=== PATIENT | male | born 1950 | race Caucasian/White ===

== ENCOUNTER 2024-07-28 15:34 | Inpatient (IN) | payer OTHER, MEDICARE ==
[2024-07-28 15:46] VITALS: RESP 18; BMI 24.3
[2024-07-28 16:50] LABS: BASO % 0.3 % (0-2.0); EOS % 0.6 % (0-4.5); HEMATOCRIT 39.2 % (35.4-49); HEMOGLOBIN 13.5 GM/dL (11.7-16.9); LYMPH % 24.9 % (8-40); MCH 32.6 pg (25.7-33.7); MCHC 34.3 g/dl (32.0-35.9); MEAN CELL VOLUME 94.9 fl (80-96); MONO % 9.8 % (3.8-10.2); NEUT % 64.4 % (42.8-82.8); PLATELET COUNT 144 10^3/uL (134-434); RBC 4.13 M/mm3 (4.00-5.60); RDW 12.7 % (11.9-15.9); WHITE BLOOD COUNT 7.3 K/mm3 (4.0-10.0)
[2024-07-28 16:58] LABS: INR 1.14 (0.83-1.09); PROTHROMBIN TIME (PATIENT) 13.1 SEC (9.7-13.0)
[2024-07-28 17:01] LABS: ACTIVATED PTT 25.8 SECONDS (25.2-36.5)
[2024-07-28 17:13] LABS: POTASSIUM 4.2 mmol/L (3.5-5.1)
[2024-07-28 17:15] LABS: BLOOD UREA NITROGEN 18.3 mg/dL (7-18); CALCIUM 9.1 mg/dL (8.5-10.1)
[2024-07-28 17:19] LABS: CREATININE 1.2 mg/dL (0.55-1.3)
[2024-07-28 17:21] LABS: BILIRUBIN,TOTAL 0.7 mg/dL (0.2-1); TOT PROT 7.3 g/dl (6.4-8.2)
[2024-07-28 17:24] LABS: N-TERMINAL BNP 3077.6 pg/ml (5-450)
[2024-07-28] MEDS: metoPROLOL SUCCINATE 25 MG TAB.SR.24H (FP) PO ONE (21:29)
[2024-07-28] MEDS: APIXABAN 5 MG TABLET PO SCH (21:29)
[2024-07-29 00:57] LABS: URINE APPEARANCE CLEAR; URINE COLOR YELLOW; URINE GLUCOSE (UA) NEGATIVE (NEGATIVE)
[2024-07-29 00:58] LABS: URINE BILIRUBIN NEGATIVE (NEGATIVE); URINE KETONE TRACE (NEGATIVE); URINE NITRITE NEGATIVE (NEGATIVE); URINE PROTEIN NEGATIVE (NEGATIVE); URINE UROBILINOGEN 0.2 mg/dL (0.2-1.0)
[2024-07-29 00:59] LABS: URINE LEUK ESTERASE NEGATIVE (NEGATIVE)
[2024-07-29 08:16] LABS: BASO % 0.4 % (0-2.0); EOS % 0.7 % (0-4.5); HEMATOCRIT 37.1 % (35.4-49); HEMOGLOBIN 12.7 GM/dL (11.7-16.9); LYMPH % 21.5 % (8-40); MCH 32.6 pg (25.7-33.7); MCHC 34.1 g/dl (32.0-35.9); MEAN CELL VOLUME 95.5 fl (80-96); MEAN PLT VOLUME 9.9 fl (7.5-11.1); MONO % 11.2 % (3.8-10.2); NEUT % 66.2 % (42.8-82.8); PLATELET COUNT 121 10^3/uL (134-434); RBC 3.88 M/mm3 (4.00-5.60); RDW 12.9 % (11.9-15.9); WHITE BLOOD COUNT 5.5 K/mm3 (4.0-10.0)
[2024-07-29 08:23] LABS: POTASSIUM 3.8 mmol/L (3.5-5.1)
[2024-07-29 08:36] LABS: ALBUMIN 3.4 g/dl (3.4-5.0)
[2024-07-29 08:37] LABS: TOT PROT 6.1 g/dl (6.4-8.2)
[2024-07-29 08:38] LABS: CREATININE 1.1 mg/dL (0.55-1.3)
[2024-07-29 08:45] LABS: BILIRUBIN,TOTAL 0.8 mg/dL (0.2-1)
[2024-07-29 08:46] LABS: CALCIUM 8.9 mg/dL (8.5-10.1)
[2024-07-29 08:47] LABS: BLOOD UREA NITROGEN 17.2 mg/dL (7-18)
[2024-07-29] MEDS ORDERED: metoPROLOL SUCCINATE 25 MG TAB.SR.24H (FP) PO SCH (10:00)
[2024-07-29] MEDS: LOSARTAN 50MG/HCTZ 12.5MG 1 TAB PO SCH (13:45)
[2024-07-29] MEDS: metoPROLOL SUCCINATE 25 MG TAB.SR.24H (FP) PO SCH (13:45)
[2024-07-29] MEDS: TAMOXIFEN CITRATE 10 MG TABLET PO SCH (15:49)
[2024-07-30 06:10] VITALS: TEMP 97.9
[2024-07-30 08:12] LABS: BASO % 0.3 % (0-2.0); EOS % 1.2 % (0-4.5); HEMATOCRIT 36.1 % (35.4-49); HEMOGLOBIN 12.4 GM/dL (11.7-16.9); LYMPH % 23.7 % (8-40); MCH 32.7 pg (25.7-33.7); MCHC 34.4 g/dl (32.0-35.9); MEAN CELL VOLUME 95.2 fl (80-96); MEAN PLT VOLUME 10.2 fl (7.5-11.1); MONO % 10.5 % (3.8-10.2); NEUT % 64.3 % (42.8-82.8); PLATELET COUNT 128 10^3/uL (134-434); RBC 3.79 M/mm3 (4.00-5.60); RDW 12.8 % (11.9-15.9); WHITE BLOOD COUNT 5.8 K/mm3 (4.0-10.0)
[2024-07-30] MEDS ORDERED: REGADENOSON 0.4 MG/5 ML PRE-FILLED SYRINGE IVPUSH ONE (08:15)
[2024-07-30 08:29] LABS: CALCIUM 8.5 mg/dL (8.5-10.1)
[2024-07-30 08:30] LABS: ALBUMIN 3.4 g/dl (3.4-5.0); BLOOD UREA NITROGEN 17.4 mg/dL (7-18)
[2024-07-30 08:35] LABS: BILIRUBIN,TOTAL 0.7 mg/dL (0.2-1); TOT PROT 6.1 g/dl (6.4-8.2)
[2024-07-30] MEDS: REGADENOSON 0.4 MG/5 ML PRE-FILLED SYRINGE IVPUSH ONE (08:55)
[2024-07-30 16:13] VITALS: BP 150/61; PULSE 57
== END 2024-07-30 18:38 | disposition home or self-care (01) | DRG 309 ==
LOC: JER 15:34 → JERBED 17:51 → J4W 21:04
PROVIDERS: ADMIT Internal Medicine; ATTEND Internal Medicine
DX: I48.91 Unspecified atrial fibrillation (principal); I24.89 Other forms of acute ischemic heart disease; I10 Essential (primary) hypertension; K21.9 Gastro-esophageal reflux disease without esophagitis; I45.10 Unspecified right bundle-branch block; I45.2 Bifascicular block
CPT/HCPCS: 0241U-QW; 36415; 71045-TC-FY; 71275-TC; 78452-TC; 80053; 80061; 81003; 83735; 83880; 84100; 84484; 85025; 85610; 85730; 93005; 93010; 93017; 93306-TC; 99285-25; A9502; J2785

== ENCOUNTER 2025-05-12 22:54 | Emergency (ER) | payer OTHER, MEDICARE ==
[2025-05-12 22:59] VITALS: RESP 18; TEMP 98.4; BMI 24.3
[2025-05-13 00:58] LABS: ABSOLUTE IMMATURE GRANULOCYTES 0.02 x10^3/uL (0.0-0.031); BASOPHILS # 0.02 x10^3/uL (0.01-0.08); EOSINOPHIL % 1.7 % (0.8-7.0); EOSINOPHILS # 0.11 x10^3/uL (0.04-0.54); HEMATOCRIT 35.1 % (40.1-51.0); HEMOGLOBIN 11.8 g/dL (13.7-17.5); MCHC 33.6 g/dl (32.3-36.5); MEAN CELL VOLUME 96.4 fl (79.0-92.2); MEAN PLT VOLUME 11.9 fl (9.4-12.4); MONOCYTE # 0.67 x10^3/uL (0.30-0.82); MONOCYTE % 10.5 % (5.3-12.2); PLATELET COUNT 126 x10^3/uL (163-337); RDW 12.2 % (12.2-16.6)
[2025-05-13 01:55] LABS: INR 1.48 (0.83-1.09); PROTHROMBIN TIME (PATIENT) 16.3 SEC (9.7-13.0)
[2025-05-13 01:57] LABS: ACTIVATED PTT 30.2 SECONDS (25.2-36.5)
[2025-05-13 02:05] LABS: POTASSIUM 4.3 mmol/L (3.5-5.1)
[2025-05-13 02:07] LABS: CALCIUM 9.4 mg/dL (8.5-10.1)
[2025-05-13 02:09] LABS: ALBUMIN 3.4 g/dl (3.4-5.0); MAGNESIUM 1.9 mg/dL (1.8-2.4)
[2025-05-13 02:12] LABS: CREATININE 1.1 mg/dL (0.55-1.3)
[2025-05-13 02:14] LABS: BILIRUBIN,TOTAL 0.3 mg/dL (0.2-1); TOT PROT 6.3 g/dl (6.4-8.2)
[2025-05-13 02:16] LABS: N-TERMINAL BNP 390.4 pg/ml (5-450)
[2025-05-13 03:36] VITALS: BP 142/78; PULSE 68
== END 2025-05-13 03:36 | disposition home or self-care (01) ==
LOC: JER 22:54
DX: R00.2 Palpitations (principal); R07.89 Other chest pain; X50.0XXA Overexertion from strenuous movement or load, initial encounter
CPT/HCPCS: 36415; 71045-TC-FY; 80053; 83735; 83880; 84443; 84484; 85025; 85610; 85730; 93005; 93010; 99285-25